=== PATIENT | female | born 1940 | race Caucasian/White ===

== ENCOUNTER → 2017-01-05 | Outpatient (CLI) | payer MEDICARE, OTHER ==
[~2017-01-05] MED LIST: ASPI-983 PO; ATOR80TA76 PO; CLOP75TA28 PO; DICL500C PO; LISI10TA2 PO; TRAM50TA2 PO
[2017-01-05 09:50] LABS: BASOPHILS # (AUTO) 0.1 10^3/uL (0.0-0.1); BASOPHILS % (AUTO) 1 % (0-10); EOSINOPHILS # (AUTO) 0.1 10^3/uL (0.0-0.3); EOSINOPHILS % (AUTO) 1 % (0-10); LYMPHOCYTES # (AUTO) 1.9 X 10^3 (1.0-4.0); LYMPHOCYTES % (AUTO) 22 % (12-44); MEAN CORPUSCULAR HEMOGLOBIN 30 PG (25-34); MEAN CORPUSCULAR HGB CONC 33 G/DL (32-36); MEAN CORPUSCULAR VOLUME 91 FL (80-99); MEAN PLATELET VOLUME 10.1 FL (7.4-10.4); MONOCYTES # (AUTO) 0.8 X 10^3 (0.0-1.0); MONOCYTES % (AUTO) 9 % (0-12); NEUTROPHILS # (AUTO) 5.8 X 10^3 (1.8-7.8); NEUTROPHILS % (AUTO) 68 % (42-75); PLATELET COUNT 226 10^3/uL (130-400); RED BLOOD COUNT 4.68 10^6/uL (4.35-5.85); WHITE BLOOD COUNT 8.6 10^3/uL (4.3-11.0)
[2017-01-05 10:12] LABS: ALANINE AMINOTRANSFERASE 21 U/L (0-55); ANION GAP 11 MMOL/L (5-14); ASPARTATE AMINO TRANSFERASE 24 U/L (5-34); BILIRUBIN,TOTAL 0.7 MG/DL (0.1-1.0); BLOOD UREA NITROGEN 18 MG/DL (7-18); BUN/CREATININE RATIO 24; CALCIUM 9.8 MG/DL (8.5-10.1); CARBON DIOXIDE 26 MMOL/L (21-32); CHLORIDE 104 MMOL/L (98-107); CREATININE SERUM 0.76 MG/DL (0.60-1.30); GFR ESTIMATED > 60; GLUCOSE 79 MG/DL (70-105); POTASSIUM 4.3 MMOL/L (3.6-5.0); SODIUM 141 MMOL/L (135-145); TOTAL PROTEIN 6.8 G/DL (6.4-8.2)
== END ==
LOC: LAB 09:28
PROVIDERS: ATTEND Surgery
DX: I70.232 Atherosclerosis of native arteries of right leg with ulceration of calf (principal); L97.213 Non-pressure chronic ulcer of right calf with necrosis of muscle; I87.331 Chronic venous hypertension (idiopathic) with ulcer and inflammation of right lower extremity; T65.222S Toxic effect of tobacco cigarettes, intentional self-harm, sequela
CPT/HCPCS: 36415; 80053; 85025

== ENCOUNTER → 2017-01-08 | Outpatient (CLI) | payer MEDICARE, OTHER | LOC: RAD 08:32 | PROVIDERS: ATTEND Internal Medicine Interventional Cardiology | DX: Z53.9 Procedure and treatment not carried out, unspecified reason (principal) ==

== ENCOUNTER → 2017-01-08 | Outpatient (CLI) | payer MEDICARE, OTHER ==
[~2017-01-08] MED LIST changes: +CATHETER FLUSH 10 ML SYR IV PRN; +IOHEXOL 350 MG/ML 150 ML (OMNIPAQUE 350) VIAL IV ONE; +NS 100 ML (IVPB) BAG IV ONE
--- NOTE | 2017-01-08 11:27 | Diagnostic Imaging Report ---
PROCEDURE: CT angiography of the chest with contrast. TECHNIQUE: Multiple contiguous axial images were obtained through the chest after uneventful bolus administration of intravenous contrast. Reconstructed CTA MIP acquisitions were also performed. INDICATION: Blood pressure discrepancy. 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 Ectasia of the right subclavian artery is also noted. The mid and distal segments of the right subclavian artery are obscured by the streak artifact from incoming contrast through the right subclavian vein. There is suggestion of kinking in the mid to distal right subclavian artery which narrows the lumen. This may be positional due to arm-up position. If the patient is symptomatic in the right arm then ultrasound evaluation or CT of the neck which is done in a neutral arm position would be helpful. There is mild ectasia of the distal aspect of the left subclavian artery and the axillary artery with no high-grade stenosis. The left common carotid artery is patent. The distal aspect of the aortic arch is aneurysmal measuring 3.3 cm in caliber. The descending aorta is aneurysmal measuring 3.7 cm in caliber. There is diffuse aneurysmal dilatation of the descending aorta and extending to the abdominal aorta which measures 3 cm above the celiac artery and 2.9 cm just above the renal arteries. The infrarenal abdominal aorta is normal in caliber. 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 The ascending aorta is normal in caliber as well as the aortic root. The heart size is normal. No pericardial or pleural effusion. The pulmonary arteries demonstrate no filling defect to suggest pulmonary embolism. The lungs demonstrate advanced emphysema changes. There is no mediastinal mass or significantly enlarged lymph nodes seen. No significantly enlarged hilar or axillary lymph nodes are noted. Calcified granulomas in the lungs and the spleen are noted. The osseous structures demonstrate degenerative changes in the mid to lower thoracic spine. IMPRESSION: 1. 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 In the mid to distal aspect of the right subclavian artery, there is kinking of the vessel narrowing the lumen. This could be positional and if the patient has symptoms in the right upper extremity, then better evaluation with right upper extremity arterial ultrasound or CTA of the neck (which will be in a neutral arm position) would be helpful. 2. 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 Followup studies recommended. Dictated by: Dictated on workstation # [id number]
--- NOTE | 2017-01-08 12:48 | Diagnostic Imaging Report ---
PROCEDURE: US Bilateral lower extremity arterial. TECHNIQUE: Multiple real-time grayscale images are obtained through both lower extremity arterial systems with color Doppler imaging and color Doppler spectral analysis. INDICATION: Limb ischemia. FINDINGS: The right lower extremity arteries demonstrate atherosclerotic plaque on grayscale images. There are triphasic waveforms and normal flow seen in the right EATING DISORDER PSYCHOLOGIST. The profunda femoris has biphasic waveforms. There is slow monophasic flow in the proximal SFA. There is a long segment of occlusion in the mid SFA with reconstitution of flow in the distal SFA which demonstrates an elevated velocity of 272 cm/s. Monophasic waveforms are seen. There is patency with monophasic waveforms and diminished flow velocity of 26 seen in the right popliteal artery. The peroneal trunk is patent with diminished flow. The dorsalis pedis appears occluded. More proximally, the anterior tibial artery has diminished flow. The posterior tibial artery has diminished monophasic waveforms with a velocity of 32 cm/s. LEFT LOWER EXTREMITY: Grayscale images demonstrate atherosclerotic plaque. Biphasic waveforms in the common femoral and proximal and mid superficial femoral arteries are seen with normal velocity ranges. The profunda femoris is patent. There is a short segment complete occlusion in the distal left SFA with reconstitution in the mid to distal popliteal artery that demonstrates diminished flow with monophasic waveforms. The posterior tibial artery proximally is patent and distally appears occluded. The anterior tibial artery appears patent with flow to the dorsalis pedis at 35 cm/s. IMPRESSION: Bilateral SFA occlusions as above. There is also occlusion in the dorsalis pedis on the right and occlusion of the posterior tibial artery on the left. The report was faxed to the office of Dr. Carpenter by [facility] at 12:50 PM. Dictated by: Dictated on workstation # [id number]
== END ==
LOC: RAD 08:22
PROVIDERS: ATTEND Internal Medicine Interventional Cardiology
DX: I70.203 Unspecified atherosclerosis of native arteries of extremities, bilateral legs (principal); I71.9 Aortic aneurysm of unspecified site, without rupture; I99.8 Other disorder of circulatory system; F17.200 Nicotine dependence, unspecified, uncomplicated
CPT/HCPCS: 71275; 93925

== ENCOUNTER 2017-01-11 10:16 | Day surgery (SDC) | payer MEDICARE ==
[~2017-01-11] VITALS: Ht 167.6 cm; Wt 52.2 kg
[2017-01-11] VITALS (8 sets, daily range): BP systolic 110–168; BP diastolic 54–72
[2017-01-11] MEDS ORDERED: NS IV 1000 ML 1,000 ML ONE (10:31)
[2017-01-11] MEDS ORDERED: HEParin (CATH LAB) 2,000 ML IV ONE (10:31)
[2017-01-11] MEDS ORDERED: LIDOCAINE 1% INJ 20 ML (XYLOCAINE) VIAL ONE (10:31)
[2017-01-11] MEDS ORDERED: DICL500C PO (11:23)
[2017-01-11 11:25] LABS: MEAN PLATELET VOLUME 10.4 FL (7.4-10.4); RED BLOOD COUNT 4.52 10^6/uL (4.35-5.85); RED CELL DISTRIBUTION WIDTH 14.9 % (10.0-14.5); WHITE BLOOD COUNT 8.1 10^3/uL (4.3-11.0)
[2017-01-11] MEDS ORDERED: NS IV 1000 ML 1,000 ML IV SCH (11:30)
[2017-01-11] MEDS ORDERED: TRAM50TA2 PO (11:35)
[2017-01-11 11:38] LABS: PROTHROMBIN TIME PATIENT 12.6 SEC (12.2-14.7)
[2017-01-11 11:46] LABS: ALANINE AMINOTRANSFERASE 22 U/L (0-55); ANION GAP 10 MMOL/L (5-14); ASPARTATE AMINO TRANSFERASE 19 U/L (5-34); BILIRUBIN,TOTAL 0.4 MG/DL (0.1-1.0); BLOOD UREA NITROGEN 21 MG/DL (7-18); BUN/CREATININE RATIO 29; CALCIUM 9.7 MG/DL (8.5-10.1); CARBON DIOXIDE 28 MMOL/L (21-32); CHLORIDE 102 MMOL/L (98-107); CHOLESTEROL 181 MG/DL (< 200); CREATININE SERUM 0.72 MG/DL (0.60-1.30); DIRECT LDL 95 MG/DL (1-129); GFR ESTIMATED > 60; GLUCOSE 90 MG/DL (70-105); SODIUM 140 MMOL/L (135-145); TOTAL PROTEIN 6.6 G/DL (6.4-8.2); TRIGLYCERIDES 145 MG/DL (<150); VLDL CHOLESTEROL 29 MG/DL (5-40)
[2017-01-11] MEDS ORDERED: fentaNYL INJECTION 100 MCG/2 ML AMP ONE ×2 (14:27→15:57)
[2017-01-11] MEDS ORDERED: diphenhydrAMINE 50 MG/ML INJ (BENADRYL) ONE (14:27)
[2017-01-11] MEDS ORDERED: MIDAZOLAM 5 MG/5 ML (VERSED) VIAL ONE ×2 (14:27→15:57)
--- NOTE | 2017-01-11 14:40 | Cardiac Procedure Note-CS/ASA ---
Pre-Procedure Note Pre-Op Procedure Note H&P Reviewed The H&P was reviewed, patient examined and no changes noted. Date H&P Reviewed: January 11, 2017 Time H&P Reviewed: 14:40 Conscious Sedation Pre-Proced Time Reviewed: 14:40 ASA Class: 3 Airway Mallampati Classification: (pilot station appropriate class) I. II. III, IV Lungs Heart ASA score ASA 1: a normal healthy patient ASA 2: a patient with a mild systemic disease (mid diabetes, controlled hypertension, obesity ASA 3: a patient with a severe systemic disease that limits activity (angina , COPD, prior Myocardial infarction) ASA 4: a patient with an incapacitating disease that is a constant threat to life (CHF, renal failure) ASA 5: a moribund patient not expected to survive 24 hrs. (ruptured aneurysm) ASA 6: a declared brain patient whose organs are being harvested. For emergent operations, add the letter E after the classification Grade 1 Sedation Plan: Analgesia, Amnesia, Plan communicated to team members, Discussed options with patient/fam, Discussed risks with patient/fam Note The patient is an appropriate candidate to undergo the planned procedure, sedation, and anesthesia. The patient immediately re-assessed prior to indication. Jesus MAJOR MD January 11, 2017 2:40 pm
[2017-01-11] MEDS ORDERED: CLOPIDOGREL 300 MG (PLAVIX) TABLET PO ONE (15:23)
[2017-01-11] MEDS ORDERED: HEParin 1000 UNIT/ML (10ML VIAL) FOR BOLUS ONE (15:23)
--- NOTE | 2017-01-11 17:54 | Cardiology Post Procedure Note ---
Post-Procedure Note Post-Op Procedure Note Procedure Start Date: January 11, 2017 Procedure Start Time: 14:00 Name of Procedure: peripheral angiography, balloon angioplasty to right popliteal artery, stents to right superficial femoral artery, balloon angioplasty to right common femoral artery. Findings/Procedure Note totally occluded right SFA treated with 3 supera stents. Severe right popliteal artery disease treated with 5.0 Lutonix drug coated balloon. Drug coated balloon angioplasty (6.0mm Lutonix) to the ostium of the right SFA and [employer]. Anesthesia Type: Conscious Sedation Estimated blood loss (mL): 30 ml Contrast Amount: 180 Post-Operative Diagnosis Post-operative diagnosis: total occlusion right SFA, severe disease right popliteal artery treated successfully with balloon angioplasty and stent. Jesus MAJOR MD January 11, 2017 5:54 pm
[2017-01-11] MEDS ORDERED: PATIENT MAY USE OWN MEDS, ALL PO SCH (18:00)
[2017-01-11] MEDS: NS IV 1000 ML 1,000 ML IV SCH ×2 (18:00→20:13)
[2017-01-11] MEDS: morphine INJ 4 MG/ML 1 ML (VIAL/SYRINGE) IVP PRN (20:13)
[2017-01-11] MEDS ORDERED: ATROPINE INJ 0.4 MG/ML SDV ONE (20:21)
[2017-01-11] MEDS ORDERED: ATROPINE INJECTION 1 MG/10 ML SYR (ABBOTT) ONE (20:23)
[2017-01-11] MEDS ORDERED: ATORVASTATIN 80 MG (LIPITOR) TABLET PO SCH (21:00)
[2017-01-12] VITALS (13 sets, daily range): BP systolic 94–157; BP diastolic 37–75
[2017-01-12] MEDS: morphine INJ 4 MG/ML 1 ML (VIAL/SYRINGE) IVP PRN ×2 (00:09→08:59)
[2017-01-12 04:35] LABS: MEAN PLATELET VOLUME 10.8 FL (7.4-10.4); RED BLOOD COUNT 4.28 10^6/uL (4.35-5.85); RED CELL DISTRIBUTION WIDTH 14.9 % (10.0-14.5)
[2017-01-12 04:52] LABS: ANION GAP 9 MMOL/L (5-14); BLOOD UREA NITROGEN 16 MG/DL (7-18); BUN/CREATININE RATIO 24; CALCIUM 8.6 MG/DL (8.5-10.1); CARBON DIOXIDE 23 MMOL/L (21-32); CHLORIDE 108 MMOL/L (98-107); CREATININE SERUM 0.66 MG/DL (0.60-1.30); GFR ESTIMATED > 60; GLUCOSE 141 MG/DL (70-105); POTASSIUM 3.8 MMOL/L (3.6-5.0); SODIUM 140 MMOL/L (135-145)
[2017-01-12] MEDS: NS IV 1000 ML 1,000 ML IV SCH (05:42)
[2017-01-12] MEDS ORDERED: NS IV 500 ML 500 ML IV ONE (05:45)
[2017-01-12] MEDS ORDERED: lisINopril 10 MG (PRINIVIL) TAB PO SCH (09:00)
[2017-01-12] MEDS ORDERED: CLOPIDOGREL 75 MG (PLAVIX) TABLET PO SCH (09:00)
[2017-01-12] MEDS ORDERED: ASPIRIN E.C. 81 MG (ECOTRIN) TAB PO SCH (09:00)
[2017-01-12] MEDS ORDERED: morphine INJ 4 MG/ML 1 ML (VIAL/SYRINGE) IVP PRN (10:30)
[2017-01-12] MEDS ORDERED: ASPI-983 PO (11:35)
[2017-01-12] MEDS ORDERED: ATOR80TA76 PO (11:35)
[2017-01-12] MEDS ORDERED: LISI10TA2 PO (11:35)
[2017-01-12] MEDS ORDERED: CLOP75TA28 PO (11:35)
--- NOTE | 2017-01-12 11:36 | Discharge Inst-Post CATH ---
Discharge Inst-CATH Post Cardiac Cath D/C Inst Follow Up/Plan Follow-up with Dr. Carpenter in 2 weeks CARDIAC CATH DISCHARGE INSTRUCTIONS *Hold Metformin for 48 hours post heart cath. ACTIVITY * Go Home directly and rest. * Limit activity of the leg (or wrist if it was used) for 7 days including aerobics, swimming, jogging, bicycling, etc. * Restrict stair-climbing for 7 days if possible, if not, climb up with your non -cath leg, then bring together on the same step. * Avoid lifting, pushing, pulling or excessive movement of the affected extremity for 7 days. * Customary sexual activity may be resumed after 2 days-use caution not to use a position that strains or causes pain to the affected extremity. * No driving for 24 hours. * NO SMOKING. * Avoid straining for bowel movements for 7 days. * Gentle walking on level ground is allowed. * Returning to work will depend on the type of procedure and the results. Your doctor will discuss this with you. CALL YOUR DOCTOR FOR ANY OF THE FOLLOWING: *If bleeding from the puncture site occurs- Apply gentle pressure to site with clean cloth and call your doctor or EMS. * If a knot or lump forms under the skin, increases in size, or causes pain. * If bruising appears to be worsening or moving further down your leg instead of disappearing. * Temperature above 101 F. CARE OF YOUR GROIN INCISION; * Bruising or purple discoloration of the skin near the puncture site is common. * You may shower only, no bathtub bathing for 5 days. Be careful to avoid slipping as your leg may feel stiff. * If a closure device was used on your femoral artery, please see the attached guide regarding care of the device and your leg. * REMOVE the dressing from your groin the next day after your procedure in the shower. CARE OF YOUR WRIST INCISION; * Bruising or purple discoloration of the skin near the puncture site is common. * You may shower. * DO NOT submerge wrist. * Remove dressing in 24 hours. Jesus CARPENTER MD January 12, 2017 11:36
--- NOTE | 2017-01-12 11:39 | Cardiology Discharge Summary ---
Diagnosis/Chief Complaint Date of Admission 01/11/2017 Date of Discharge 01/12/2017 Admission Diagnosis Critical limb ischemia Final/Discharge Diagnosis Critical limb ischemia, status post MARKETING LIAISON/stent to right lower extremity Chief Complaint/HPI Chief Complaint/HPI Critical limb ischemia, severe bilateral lower extremity PAD, nonhealing ulcer right lower extremity. Resting discomfort Discharge Summary Procedures Peripheral angiogram and intervention right HAND STEMMER, SFA, popliteal artery. Discharge Physical Examination Stable cardiovascular exam. Normal left groin with no bruit Palpable right PT. Hospital Course Stable Pending Labs Laboratory Tests 01/12/17 03:50: White Blood Count 10.0, Red Blood Count 4.28, Hemoglobin 12.8, Hematocrit 39, Mean Corpuscular Volume 92, Mean Corpuscular Hemoglobin 30, Mean Corpuscular Hemoglobin Concent 33, Red Cell Distribution Width 14.9, Platelet Count 189, Mean Platelet Volume 10.8, Sodium Level 140, Potassium Level 3.8, Chloride Level 108, Carbon Dioxide Level 23, Anion Gap 9, Blood Urea Nitrogen 16, Creatinine 0.66, Estimat Glomerular Filtration Rate > 60, BUN/Creatinine Ratio 24, Glucose Level 141, Calcium Level 8.6 Discussion & Recommendations Discussion Discharge took over 30 minutes including discussion with the patient, education about medication, answering all the questions, discussion with the nurse. Follow up appt.: Dr. Morejon in 2 weeks, Dr. Carpenter in 2 weeks Dicharge Diet: Cardiac Diet Activity as Tolerated: Yes Home Medications Reviewed patient Home Medication Reconciliation Form Discharge Home Medications: Reviewed and agree with Discharge Medication list on patient's Discharge Instruction sheet Condition at discharge Stable Instructions to patient/family Follow-up with Dr. Carpenter in 2 weeks Jesus CARPENTER MD January 12, 2017 11:39
--- NOTE | 2017-01-14 09:24 | CARDIAC CATHETERIZATION ---
DATE OF SERVICE: 01/11/2017 PERIPHERAL ANGIOGRAM AND ANGIOPLASTY REFERRING PHYSICIAN: Dr. Farhad Morejon. PERFORMING PHYSICIAN: Dr. Robb Carpenter. INDICATION: 1. Critical limb ischemia. 2. Nonhealing ulcer, right lower extremity. PREOPERATIVE DIAGNOSES: 1. Critical limb ischemia. 2. Nonhealing ulcer in the right miner. POSTOPERATIVE DIAGNOSES: 1. Critical limb ischemia. 2. Severe peripheral arterial disease. 3. Status post drug-coated balloon angioplasty to the right common femoral artery and popliteal artery. 4. Successful stent placement in the right SFA. HISTORY: The patient is a 76-year-old lady who has significant history of smoking. She has a large nonhealing ulcer due to a traumatic wound for the last 8 months with no significant improvement. She was referred to us by our wound center for evaluation of peripheral vascular disease. ABIs were performed, which showed significantly abnormal GETACHEW bilaterally, however, right was much worse than the left. Segmental pressures also showed significantly poor waveforms in the right lower extremity. Therefore, urgent peripheral angiography was recommended. The patient was started on aspirin, Plavix and statin. PROCEDURE PERFORMED: 1. Abdominal aortogram. 2. Nonselective renal angiogram. 3. Bilateral lower extremity runoff. 4. Selective angiography of the right common iliac artery, external iliac artery, common femoral artery. 5. Selective angiography of the right SFA. 6. Selective angiography of the right popliteal artery. 7. Drug-coated balloon angioplasty to the right popliteal artery. 8. Stent placement, right superficial femoral artery. 9. Drug-coated balloon angioplasty to right common femoral artery. COMPLICATIONS: None. SPECIMENS: None. ANTICOAGULATION: IV heparin. ESTIMATED BLOOD LOSS: 20 mL. CONTRAST DOSE: 180 mL of Omnipaque. FLUOROSCOPY DOSE: 288 mGy. EQUIPMENT USED: 1. 6 Yakut x 11 sheath. 2. Pigtail catheter. 3. 0.035 Storq 300 cm wire. 4. 0.035 standard straight Glidewire 260 cm. 5. 6 Y[place]ut x 45 cm flexor sheath. 6. 100 cm straight tapered Glidecath. 7. Gem support catheter 0.035 x 150 cm. 8. [place] 18 5 x 200 x 150 balloon. 9. Bard Lutonix 5 x 150 x 130 drug-coated balloon. 10. Bard Lutonix 6 x 80 x 130 drug-coated balloon. 11. Méndez Supera 5.5 mm x 150 mm x 120 cm stent. 12. Supera 5.5 mm x 150 mm x 120 cm Supera stent. 13. 5.0 x 120 mm Supera stent. PROCEDURE DETAILS: The patient was brought to the [facility] after informed consent was taken. All the risks and complications were explained in detail. The patient was draped and prepped in the usual sterile fashion. Access was gained in the left femoral artery with a 6-Yakut sheath. We advanced a pigtail catheter on top of regular guidewire into the mid abdominal aorta. Abdominal aortogram and nonselective renal angiogram was performed. The pigtail catheter was then pulled at the level of just above the bifurcation of the iliac vessels. We then performed bilateral lower extremity runoff. AORTOGRAM: Abdominal aortogram showed mild diffuse disease in the abdominal aorta. There was also moderate disease in the proximal right common iliac artery. Left renal artery dose not have any significant stenosis. Right renal artery has mild stenosis at the ostium. RIGHT LOWER EXTREMITY: As mentioned earlier, the pigtail catheter then was pulled back to be just above the bifurcation of the iliac artery. Bilateral lower extremity runoff was performed. It showed moderate disease in the ostium and proximal segment of the right common iliac artery. There was no significant disease in the right external iliac artery. There is mild disease in the right common femoral artery. There is a total long occlusion of the right SFA, right from its origin. It reconstitutes in the distal aspect for 2-3 cm and then there is another long occlusion, which reconstitutes in the distal popliteal artery. The distal segment is supplied by good collaterals from the deep femoral artery. The right popliteal artery also has significant severe stenosis. Below the knee, there is at least 2-vessel runoff. There is a reasonable sized right posterior tibial artery, which supplies the majority of the foot. There is also a patent deep peroneal artery, which has mild diffuse disease and supplies almost until the foot. The anterior tibial artery is significantly diseased and totally occluded in the midcalf region and no significant reconstitution is noted. LEFT LOWER EXTREMITY: No significant disease in the left common, external iliac artery. There is [id number] disease in the distal left external iliac artery as well as the common femoral artery. There is at least moderate disease at the bifurcation of the common femoral artery into the deep femoral and superficial femoral artery. The superficial femoral artery has [id number] diffuse disease, but then occludes just before it enters into the Solo canal. There, popliteal artery is occluded and reconstitution is noted in the distal aspect of the left popliteal artery below the knee supplied by collaterals from above the knee. There is a patent but diffusely diseased anterior tibial artery which supplies the foot. There is no significant severe stenosis noted, however, there is diffuse disease. The left posterior tibial as well as deep peroneal artery are not well visualized and maybe severely diseased or even occlusive. RECOMMENDATIONS: Distal aspect of the right UNLOADING CHECKER, the entire aspect of the SFA and popliteal artery intervention is recommended. INTERVENTION DETAILS: We used the pigtail catheter as a crossover catheter and used a Storq wire to perform the crossover of the pigtail as well as the Storq wire into the right lower extremity. The Storq wire was parked in the proximal SFA and the pigtail catheter was removed and the sheath was exchanged to a long 6-Yakut x 45 cm flexor sheath. The tip of the sheath was advanced into the proximal aspect of the right UNLOADING CHECKER. The wire was taken out and selective angiogram in ipsilateral and contralateral views were performed to see exactly where the occlusion of the right SFA starts. There was a small nub noted just at the distal aspect of the UNLOADING CHECKER. There is a large profunda which actually supplies the majority of the collaterals. We then took a straight tapered [place] catheter and used a Glidewire to advance into the occlusive segment of the SFA. We advanced a few cm in and felt some resistance; therefore, we took the wire out and took a selective angiogram, which showed that we were still in the arterial space. We then took wire again and then this time took the [place] catheter out as well and took a Gem support catheter by vascular Screenie and with difficulty, we were able to traverse the entire long occlusive segment of the right SFA and got to the distal popliteal artery. The wire was taken out and we injected through the Gem support catheter and took a selective angiogram, which demonstrated that we were intraluminal in the distal aspect of the popliteal artery. We then took a Command 0.018 wire and placed it into the deep peroneal artery and took out the Gem support catheter. We then took an [place] 18 5 x 200 x 150 balloon and advanced it until the distal aspect of the right popliteal artery. First inflation was performed for 5 atmospheres for 153 seconds. We then pulled the balloon back in the mid aspect of the SFA and performed another inflation for 5 atmospheres for 120 seconds. We then pulled the balloon further out and performed a balloon inflation at the proximal SFA and the distal UNLOADING CHECKER for 5 atmospheres for 62 seconds. Post balloon angioplasty, angiogram was performed, which showed recanalization with still some residual stenosis and small areas of nonflow limiting dissection noted. We then took a Lutonix 5 x 150 x 130 drug-coated balloon and did a balloon angioplasty in the right popliteal artery at nominal pressures for 120 minutes. We then took the same drug-coated balloon back and performed a balloon angioplasty at 10 atmospheres and then 16 atmospheres twice in the mid and proximal aspect of the SFA and distal UNLOADING CHECKER. Post balloon angioplasty showed a reasonable angiographic result. We then took a Supera stent and implanted it, Supera 5.0 x 120 cm stent from the mid aspect of the popliteal artery until the distal aspect of the SFA. We then took another Supera 5.5 mm x 150 x 120 cm stent and did an overlap at the previous stent and placed it in the mid aspect of the SFA. We then took another Supera stent, a 5.5 mm x 150 mm x 120 cm and did an overlap at mid stent and placed it in the proximal aspect of the right SFA. We then took the stent deployment device out of the arterial space and did an angiogram, which showed excellent recanalization with brisk flow down to below the knee. The proximal aspect of the large stent was just below the origin of the right SFA. This was part of the occlusive segment; therefore, we decided to take another Lutonix 6 x 80 x 130 stent and did a balloon dilatation for 12 atmospheres for 120 seconds in the distal UNLOADING CHECKER and ostial right SFA. Post balloon angioplasty, angiogram showed excellent results with good flow down to the foot via 2 vessels below the knee. The residual disease that was left in the distal popliteal and anterior tibial artery, which will be addressed at a later date if required. We then pulled the sheath back to the right common iliac artery and did a selective angiogram to show good results and no vascular complication in the right common, external iliac, UNLOADING CHECKER. We then did pressure measurement across the moderate diseased segment in the right common iliac artery and the pressure gradient of less than 5 mmHg. We then selective angiogram at the end of the bifurcation to make sure there was no damage done to the bifurcation of the iliac artery. We then took the long sheath out and replaced it with a short 6-Yakut sheath. Review of the left common femoral artery showed at least moderate disease, therefore, no vascular closure device was placed and it will be closed with manual compression. Also to note that the patient was given IV heparin for anticoagulation and ACT was over 200 seconds. The patient tolerated the procedure well, did not have any complications. IMPRESSION AND CONCLUSION: 1. Severe bilateral peripheral arterial disease. 2. Long segment of occlusive disease in the right superficial femoral artery and severe disease in the right popliteal artery, successfully treated with drug-coated balloons and stents. 3. Aspirin, Plavix, statins will be started. 4. Smoking cessation strongly recommended. 5. The left lower extremity as well as the right below the knee disease will be addressed at a later date if required. Job ID: [id number] DocumentID: [id number] Dictated Date: 01/12/2017 22:04:15 Oil Dipper Date: 01/14/2017 05:46:02 Dictated By: ROBB CARPENTER MD
== END 2017-01-12 14:10 ==
LOC: CATH 10:16 → ICU 18:00 → CATH 01-12 14:10
PROVIDERS: ATTEND Internal Medicine Cardiovascular Disease
DX: L97.819 Non-pressure chronic ulcer of other part of right lower leg with unspecified severity (principal); I70.213 Atherosclerosis of native arteries of extremities with intermittent claudication, bilateral legs; I70.92 Chronic total occlusion of artery of the extremities; Z79.899 Other long term (current) drug therapy; Z87.891 Personal history of nicotine dependence
CPT/HCPCS: 36247; 36415; 37226; 75625; 75716; 75774; 80048; 80053; 80061; 85027; 85347; 85610; 85730; 87081

== ENCOUNTER → 2017-02-23 | Outpatient (CLI) | payer MEDICARE ==
[~2017-02-23] MED LIST changes: -CATHETER FLUSH 10 ML SYR IV PRN; -IOHEXOL 350 MG/ML 150 ML (OMNIPAQUE 350) VIAL IV ONE; -NS 100 ML (IVPB) BAG IV ONE
--- NOTE | 2017-02-23 15:14 | Diagnostic Imaging Report ---
INDICATION: Peripheral vascular disease and smoking, history of stents in right leg. TECHNIQUE: Noninvasive study performed. FINDINGS: There is significant degradation of waveforms in the right lower leg compatible with stenosis. Ankle-brachial indices are significantly diminished on the right side especially distally, with index of 0.34. Posterior tibial and dorsalis pedis are not obtainable on the left side. IMPRESSION: Evidence of significant peripheral vascular disease as above. Dictated by: Dictated on workstation # [id number]
== END ==
LOC: RAD 12:02
PROVIDERS: ATTEND Internal Medicine Interventional Cardiology
DX: I73.9 Peripheral vascular disease, unspecified (principal); F17.200 Nicotine dependence, unspecified, uncomplicated; Z95.828 Presence of other vascular implants and grafts
CPT/HCPCS: 93923

== ENCOUNTER 2017-03-23 10:48 | Outpatient (RCR) | payer MEDICARE, OTHER | END 2017-03-29 | disposition home or self-care (01) | LOC: WOUNDCARE 10:48 | PROVIDERS: ATTEND Surgery | DX: L97.213 Non-pressure chronic ulcer of right calf with necrosis of muscle (principal); I70.232 Atherosclerosis of native arteries of right leg with ulceration of calf; I87.331 Chronic venous hypertension (idiopathic) with ulcer and inflammation of right lower extremity; T65.222S Toxic effect of tobacco cigarettes, intentional self-harm, sequela | CPT/HCPCS: 11042; 11043; 87070; 87075; 87077; 87186; 87205; 99213 ==

== ENCOUNTER 2017-03-30 10:23 | Outpatient (RCR) | payer MEDICARE, OTHER | END 2017-04-02 16:00 | disposition home or self-care (01) | LOC: WOUNDCARE 10:23 | PROVIDERS: ATTEND Surgery | DX: L97.213 Non-pressure chronic ulcer of right calf with necrosis of muscle (principal); I70.232 Atherosclerosis of native arteries of right leg with ulceration of calf; I87.331 Chronic venous hypertension (idiopathic) with ulcer and inflammation of right lower extremity; T65.222S Toxic effect of tobacco cigarettes, intentional self-harm, sequela | CPT/HCPCS: 11042 ==

== ENCOUNTER 2017-04-06 12:00 | Outpatient (RCR) | payer MEDICARE, OTHER ==
[2017-03-30 10:50] LABS: ANION GAP 7 MMOL/L (5-14); BLOOD UREA NITROGEN 12 MG/DL (7-18); BUN/CREATININE RATIO 17; CALCIUM 9.5 MG/DL (8.5-10.1); CARBON DIOXIDE 29 MMOL/L (21-32); CHLORIDE 102 MMOL/L (98-107); CREATININE SERUM 0.71 MG/DL (0.60-1.30); GFR ESTIMATED > 60; GLUCOSE 99 MG/DL (70-105); SODIUM 138 MMOL/L (135-145)
[2017-04-06 12:38] LABS: ANION GAP 14 MMOL/L (5-14); BLOOD UREA NITROGEN 17 MG/DL (7-18); BUN/CREATININE RATIO 23; CALCIUM 9.7 MG/DL (8.5-10.1); CARBON DIOXIDE 23 MMOL/L (21-32); CHLORIDE 102 MMOL/L (98-107); CREATININE SERUM 0.73 MG/DL (0.60-1.30); GFR ESTIMATED > 60; GLUCOSE 76 MG/DL (70-105); POTASSIUM 3.9 MMOL/L (3.6-5.0); SODIUM 139 MMOL/L (135-145)
[2017-05-03] MEDS ORDERED: SERRAPEPTASE PO (08:58)
[2017-05-03] MEDS ORDERED: NATTOKINASE PO (08:58)
[2017-05-03] MEDS ORDERED: TURMERIC PO (08:58)
[2017-05-03] MEDS ORDERED: HYDR-3812 PO (09:09)
[2017-05-03] MEDS ORDERED: ASPI-983 PO (14:09)
[2017-05-03] MEDS ORDERED: CLOP75TA28 PO (14:09)
[2017-05-03] MEDS ORDERED: ATOR40TA PO (14:12)
== END 2017-06-02 | disposition home or self-care (01) ==
LOC: LAB 12:00
PROVIDERS: ATTEND Surgery
DX: L97.213 Non-pressure chronic ulcer of right calf with necrosis of muscle (principal); I70.232 Atherosclerosis of native arteries of right leg with ulceration of calf; I87.331 Chronic venous hypertension (idiopathic) with ulcer and inflammation of right lower extremity
CPT/HCPCS: 36415; 80048

== ENCOUNTER → 2017-04-06 | Outpatient (CLI) | payer MEDICARE | LOC: WOUNDCARE 10:33 | PROVIDERS: ATTEND Surgery | DX: L97.213 Non-pressure chronic ulcer of right calf with necrosis of muscle (principal); I70.232 Atherosclerosis of native arteries of right leg with ulceration of calf; I87.331 Chronic venous hypertension (idiopathic) with ulcer and inflammation of right lower extremity | CPT/HCPCS: 11042 ==

== ENCOUNTER → 2017-04-13 | Outpatient (CLI) | payer MEDICARE | LOC: WOUNDCARE 10:33 | PROVIDERS: ATTEND Surgery | DX: L97.213 Non-pressure chronic ulcer of right calf with necrosis of muscle (principal); I70.232 Atherosclerosis of native arteries of right leg with ulceration of calf; I87.331 Chronic venous hypertension (idiopathic) with ulcer and inflammation of right lower extremity | CPT/HCPCS: 11042 ==

== ENCOUNTER → 2017-04-27 | Outpatient (CLI) | payer MEDICARE | LOC: WOUNDCARE 10:39 | PROVIDERS: ATTEND Surgery | DX: I70.232 Atherosclerosis of native arteries of right leg with ulceration of calf (principal); L97.213 Non-pressure chronic ulcer of right calf with necrosis of muscle; I87.331 Chronic venous hypertension (idiopathic) with ulcer and inflammation of right lower extremity | CPT/HCPCS: 11042 ==

== ENCOUNTER → 2017-04-27 | Outpatient (CLI) | payer MEDICARE, OTHER ==
[~2017-04-27] MED LIST changes: +ATOR40TA PO; +HYDR-3812 PO; +NATTOKINASE PO; +SERRAPEPTASE PO; +TURMERIC PO
--- NOTE | 2017-04-27 17:52 | Diagnostic Imaging Report ---
PROCEDURE: US Bilateral lower extremity arterial. TECHNIQUE: Multiple real-time grayscale images are obtained through both lower extremity arterial systems with color Doppler imaging and color Doppler spectral analysis. INDICATION: Leg pain. FINDINGS: There are no previous arterial Doppler examinations available for comparison. The noninvasive ultrasound exam of the lower extremities performed on 02/23/2017 did indicate severe peripheral vascular disease. On this study, there is triphasic flow in the left common femoral artery. The waveform changes to biphasic in the proximal superficial femoral artery and to monophasic in the mid superficial femoral artery. The waveform remains monophasic to the ankles. There is no abrupt alteration involving the superficial femoral or popliteal arteries to suggest a hemodynamically significant stenosis, but there does seem to be severely diminished arterial flow in the trifurcation arteries. 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 By history, the patient has a stent in the superficial femoral artery on the right. The stent appears to be occluded. There is a small amount of arterial flow in the popliteal artery on the right, but there does seem to be diminished arterial blood flow to the lower leg, and the dorsalis pedis artery is occluded. IMPRESSION: 1. There is severely diminished arterial blood flow to both lower extremities. On the left, this appears to be related to trifurcation disease. On the right, the stent involving the superficial femoral artery is occluded. There is also most likely an element of trifurcation disease on the right as well. 2. If further imaging is desired, CTA of the aorta and bilateral lower extremities would be recommended. Dictated by: Dictated on workstation # [id number]
== END ==
LOC: RAD 11:34
PROVIDERS: ATTEND Internal Medicine Interventional Cardiology
DX: I77.1 Stricture of artery (principal); I70.213 Atherosclerosis of native arteries of extremities with intermittent claudication, bilateral legs; I99.8 Other disorder of circulatory system
CPT/HCPCS: 93925

== ENCOUNTER 2017-05-03 07:21 | Day surgery (SDC) | payer MEDICARE, OTHER ==
[2017-05-03] VITALS (12 sets, daily range): BP systolic 95–162; BP diastolic 45–87
[~2017-05-03] VITALS: Ht 167.6 cm; Wt 52.2 kg
[~2017-05-03 07:21] MED LIST changes: -ATOR40TA PO; -HYDR-3812 PO; -NATTOKINASE PO; -SERRAPEPTASE PO; -TURMERIC PO
[2017-05-03] MEDS ORDERED: NS IV 1000 ML 1,000 ML ONE (07:31)
[2017-05-03] MEDS ORDERED: HEParin (CATH LAB) 2,000 ML IV ONE (07:32)
[2017-05-03] MEDS ORDERED: NS IV 1000 ML 1,000 ML IV SCH (08:00)
[2017-05-03 08:23] LABS: MEAN PLATELET VOLUME 10.4 FL (7.4-10.4); RED BLOOD COUNT 4.94 10^6/uL (4.35-5.85); RED CELL DISTRIBUTION WIDTH 15.6 % (10.0-14.5); WHITE BLOOD COUNT 7.1 10^3/uL (4.3-11.0)
[2017-05-03 08:34] LABS: INR 0.9 (0.8-1.4); PROTHROMBIN TIME PATIENT 12.1 SEC (12.2-14.7)
[2017-05-03 08:42] LABS: ALANINE AMINOTRANSFERASE 21 U/L (0-55); ALBUMIN 4.2 GM/DL (3.2-4.5); ANION GAP 10 MMOL/L (5-14); ASPARTATE AMINO TRANSFERASE 23 U/L (5-34); BILIRUBIN,TOTAL 0.7 MG/DL (0.1-1.0); BLOOD UREA NITROGEN 14 MG/DL (7-18); BUN/CREATININE RATIO 18; CALCIUM 10.1 MG/DL (8.5-10.1); CARBON DIOXIDE 28 MMOL/L (21-32); CHLORIDE 104 MMOL/L (98-107); CREATININE SERUM 0.77 MG/DL (0.60-1.30); GFR ESTIMATED > 60; GLUCOSE 91 MG/DL (70-105); POTASSIUM 3.8 MMOL/L (3.6-5.0); SODIUM 142 MMOL/L (135-145); TOTAL PROTEIN 7.1 GM/DL (6.4-8.2)
[2017-05-03] MEDS ORDERED: TURMERIC PO (08:58)
[2017-05-03] MEDS ORDERED: SERRAPEPTASE PO (08:58)
[2017-05-03] MEDS ORDERED: NATTOKINASE PO (08:58)
[2017-05-03] MEDS ORDERED: fentaNYL INJECTION 100 MCG/2 ML AMP ONE ×2 (09:02→11:00)
[2017-05-03] MEDS ORDERED: ASPIRIN 81 MG CHEW (CHILDREN'S ASA) ONE (09:02)
[2017-05-03] MEDS ORDERED: NITROGLYCERIN DRIP 25 MG/D5W 0 ML IV ONE (09:02)
[2017-05-03] MEDS ORDERED: HEParin 1000 UNIT/ML (10ML VIAL) FOR BOLUS ONE (09:02)
[2017-05-03] MEDS ORDERED: CLOPIDOGREL 300 MG (PLAVIX) TABLET PO ONE (09:02)
[2017-05-03] MEDS ORDERED: MIDAZOLAM 5 MG/5 ML (VERSED) VIAL ONE (09:02)
[2017-05-03] MEDS ORDERED: HYDR-3812 PO (09:09)
[2017-05-03] MEDS ORDERED: diphenhydrAMINE 50 MG/ML INJ (BENADRYL) ONE (09:57)
--- NOTE | 2017-05-03 12:17 | Cardiac Procedure Note-CS/ASA ---
Pre-Procedure Note Pre-Op Procedure Note H&P Reviewed The H&P was reviewed, patient examined and no changes noted. Date H&P Reviewed: May 03, 2017 Time H&P Reviewed: 09:00 Conscious Sedation Pre-Proced Time Reviewed: 09:00 ASA Class: 3 Airway Mallampati Classification: ([place] appropriate class) I. II. III, IV Lungs Heart ASA score ASA 1: a normal healthy patient ASA 2: a patient with a mild systemic disease (mid diabetes, controlled hypertension, obesity ASA 3: a patient with a severe systemic disease that limits activity (angina , COPD, prior Myocardial infarction) ASA 4: a patient with an incapacitating disease that is a constant threat to life (CHF, renal failure) ASA 5: a moribund patient not expected to survive 24 hrs. (ruptured aneurysm) ASA 6: a declared brain patient whose organs are being harvested. For emergent operations, add the letter E after the classification Grade 1 Sedation Plan: Analgesia, Amnesia, Plan communicated to team members, Discussed options with patient/fam, Discussed risks with patient/fam Note The patient is an appropriate candidate to undergo the planned procedure, sedation, and anesthesia. The patient immediately re-assessed prior to indication. Jesus MAJOR MD May 03, 2017 12:17 pm
--- NOTE | 2017-05-03 12:23 | Cardiology Post Procedure Note ---
Post-Procedure Note Physician (s)/Hand Trucker (s) Physician Jesus MAJOR MD Pre-Procedure Diagnosis Pre-Procedure Diagnosis: Critical limb ischemia - right lower extremity Post-Procedure Note Procedure Start Date: May 03, 2017 Procedure Start Time: 10:00 Name of Procedure: Distal Abdominal Aortogram, Bilateral lower extremity run off Selective right lower extremity angiogram SOCIAL SCIENCES LECTURER to right TP trunk, popliteal, SFA and HOOP PUNCH OPERATOR HELPER Drug eluting balloon angioplasty to Right HOOP PUNCH OPERATOR HELPER/SFA Findings/Procedure Note Occluded right HOOP PUNCH OPERATOR HELPER, SFA, Popliteal - revascularized with SOCIAL SCIENCES LECTURER. Brisk flow to below the knee at the end of the procedure. Contrast: 143 ml Flouro time: 17.7 minutes Flouro dose: 237 mgy Anesthesia Type: Conscious Sedation Estimated blood loss (mL): 20 Contrast Amount: 143 Post-Procedure Diagnosis Post-operative diagnosis: Successful Right Lower extremity revascularization with balloon angioplasty Jesus MAJOR MD May 03, 2017 12:23 pm
[2017-05-03] MEDS ORDERED: PATIENT MAY USE OWN MEDS, ALL PO SCH (12:30)
[2017-05-03] MEDS: HYDROcodone/APAP 5 MG/325 MG (LORTAB) TAB PO PRN ×2 (13:49→23:12)
--- NOTE | 2017-05-03 14:08 | Cardiology Discharge Summary ---
Diagnosis/Chief Complaint Date of Admission 05/03/2017 Date of Discharge 05/04/2017 Admission Diagnosis Critical limb ischemia Final/Discharge Diagnosis Critical limb ischemia right lower extremity, status post balloon angioplasty Chief Complaint/HPI Chief Complaint/HPI Nonhealing ulcer, right lower extremity. Resting leg discomfort. Discharge Summary Procedures Peripheral angiography and intervention. Angiography revealed a long total occlusion of the right ENAMEL DIPPER, SFA, popliteal artery. Successful recanalization and revascularization with balloon angioplasty. Discharge Physical Examination Stable Hospital Course Stable Pending Labs Laboratory Tests 05/03/17 08:13: White Blood Count 7.1, Red Blood Count 4.94, Hemoglobin 14.4, Hematocrit 44, Mean Corpuscular Volume 90, Mean Corpuscular Hemoglobin 29, Mean Corpuscular Hemoglobin Concent 33, Red Cell Distribution Width 15.6, Platelet Count 201, Mean Platelet Volume 10.4, Prothrombin Time 12.1, INR Comment 0.9, Activated Partial Thromboplast Time 30, Sodium Level 142, Potassium Level 3.8, Chloride Level 104, Carbon Dioxide Level 28, Anion Gap 10, Blood Urea Nitrogen 14, Creatinine 0.77, Estimat Glomerular Filtration Rate > 60, BUN/Creatinine Ratio 18, Glucose Level 91, Calcium Level 10.1, Total Bilirubin 0.7, Aspartate Amino Transf (AST/SGOT) 23, Alanine Aminotransferase (ALT/SGPT) 21, Alkaline Phosphatase 80, Total Protein 7.1, Albumin 4.2 Discussion & Recommendations Discussion The patient will be discharged on aspirin, Plavix, statin. Follow up appt.: With Dr. Morejon in the wound clinic. Follow-up in my office in 3 weeks. Dicharge Diet: Cardiac Diet Activity as Tolerated: Yes Home Medications Reviewed patient Home Medication Reconciliation Form Discharge Home Medications: Reviewed and agree with Discharge Medication list on patient's Discharge Instruction sheet Condition at discharge Stable Instructions to patient/family Follow-up with Dr. Morejon in the wound clinic. Jesus MAJOR MD May 03, 2017 2:08 pm
[2017-05-03] MEDS ORDERED: CLOP75TA28 PO (14:09)
[2017-05-03] MEDS ORDERED: ASPI-983 PO (14:09)
--- NOTE | 2017-05-03 14:10 | Discharge Inst-Post CATH ---
Discharge Inst-CATH Post Cardiac Cath D/C Inst Follow Up/Plan Follow-up with Dr. Morejon in the wound clinic. In cardiology clinic in 3-4 weeks. CARDIAC CATH DISCHARGE INSTRUCTIONS *Hold Metformin for 48 hours post heart cath. ACTIVITY * Go Home directly and rest. * Limit activity of the leg (or wrist if it was used) for 7 days including aerobics, swimming, jogging, bicycling, etc. * Restrict stair-climbing for 7 days if possible, if not, climb up with your non -cath leg, then bring together on the same step. * Avoid lifting, pushing, pulling or excessive movement of the affected extremity for 7 days. * Customary sexual activity may be resumed after 2 days-use caution not to use a position that strains or causes pain to the affected extremity. * No driving for 24 hours. * NO SMOKING. * Avoid straining for bowel movements for 7 days. * Gentle walking on level ground is allowed. * Returning to work will depend on the type of procedure and the results. Your doctor will discuss this with you. CALL YOUR DOCTOR FOR ANY OF THE FOLLOWING: *If bleeding from the puncture site occurs- Apply gentle pressure to site with clean cloth and call your doctor or EMS. * If a knot or lump forms under the skin, increases in size, or causes pain. * If bruising appears to be worsening or moving further down your leg instead of disappearing. * Temperature above 101 F. CARE OF YOUR GROIN INCISION; * Bruising or purple discoloration of the skin near the puncture site is common. * You may shower only, no bathtub bathing for 5 days. Be careful to avoid slipping as your leg may feel stiff. * If a closure device was used on your femoral artery, please see the attached guide regarding care of the device and your leg. * REMOVE the dressing from your groin the next day after your procedure in the shower. CARE OF YOUR WRIST INCISION; * Bruising or purple discoloration of the skin near the puncture site is common. * You may shower. * DO NOT submerge wrist. * Remove dressing in 24 hours. Jesus MAJOR MD May 03, 2017 2:10 pm
[2017-05-03] MEDS ORDERED: ATOR40TA PO (14:12)
[2017-05-03] MEDS: NS IV 1000 ML 1,000 ML IV SCH ×2 (16:50→22:02)
[2017-05-03] MEDS ORDERED: ATORVASTATIN 80 MG (LIPITOR) TABLET PO SCH (21:00)
[2017-05-04 00:02] VITALS: BP 122/52
[2017-05-04] MEDS: HYDROcodone/APAP 5 MG/325 MG (LORTAB) TAB PO PRN (02:34)
[2017-05-04 04:10] VITALS: BP 106/55
--- NOTE | 2017-05-04 04:13 | OPERATIVE REPORT ---
DATE OF SERVICE: 05/03/2017 PROCEDURE: Peripheral angiogram and intervention. REFERRING PHYSICIAN: Dr. Farhad Morejon. PERFORMING PHYSICIAN: Dr. Anjelica Carpenter. INDICATION: 1. Critical limb ischemia, right lower extremity. 2. Non-healing ulcer, right lower extremity. PREOPERATIVE DIAGNOSES: 1. Critical limb ischemia, right lower extremity. 2. Non-healing ulcer on the right miner. POSTOPERATIVE DIAGNOSES: 1. Critical limb ischemia. 2. Severe bilateral peripheral arterial disease. 3. Totally occluded right common femoral artery, superficial femoral artery, popliteal with reconstitution in the right tibioperoneal trunk treated successfully with balloon angioplasty and drug coated balloon angioplasty to the right superficial femoral artery. HISTORY: The patient is a 77-year-old lady who previous had significant history of smoking. 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 Arterial evaluation showed severely abnormal GETACHEW and ultrasound. She had previous peripheral angiogram and angioplasty on 01/11/2017 and was found to have occluded right SFA which was recanalized with stents and balloon. However, the patient did not take aspirin and Plavix postprocedure and presented after few months with very slowly healing ulcer and some resting discomfort in the right lower extremity. ABIs were performed which showed severe abnormality. Arterial ultrasound also showed occlusion of the stent; therefore peripheral angiogram was recommended after we had a long discussion about compliance with medication especially aspirin and Plavix. PROCEDURE PERFORMED: 1. Distal abdominal aortogram. 2. Bilateral lower extremity runoff. 3. Selective angiogram of the right CRYSTALIZER, SFA, popliteal, below the knee. 4. Selective angiogram of the right SFA. 5. Selective angiogram of the right tibioperoneal trunk and the proximal section of the posterior tibial and anterior tibial artery. 6. Balloon angioplasty to the right tibioperoneal trunk, right popliteal artery, right SFA, right CRYSTALIZER. 7. Drug coated balloon angioplasty to the right common femoral artery. COMPLICATIONS: None. SPECIMENS REMOVED: None. ANTICOAGULATION: Intravenous heparin. ESTIMATED BLOOD LOSS: 20 mL. CONTRAST: 143 mL of Omnipaque. FLUOROSCOPY TIMNE: 17.7 minutes. FLUOROSCOPY DOSE: 237 mGy. EQUIPMENT USED: 1. 6 Citizen [place] x 11 sheath. 2. Pigtail catheter. 3. 0.035 Storq wire 300 cm wire. 4. 0.035 standard straight Glidewire. 5. 6 Citizen [place] x 45 cm flexor sheath. 6. 100 cm straight tipped glide catheter. 7. Garfield 18 4 x 200 x 150 balloon. 8. Garfield 35 6 x 250 x 150 balloon. 9. Lutonix drug coated balloon. PROCEDURE DETAILS: The patient was brought to the catheter laboratory after informed consent was taken. All the risks and complications were explained in detail. The patient was draped and prepped in the usual sterile fashion. Access was gained in the left femoral artery with a 6-Citizen [place] sheath. We advanced a pigtail catheter on top of regular guidewire into the mid abdominal aorta. Abdominal aortogram and bilateral lower extremity runoff was performed. Abdominal aortogram showed mild distal disease. LEFT LOWER EXTREMITY: Mild diffuse common iliac and external iliac disease. Mild to moderate disease of the ostium of the profunda artery. There is mild diffuse disease in the left SFA and then there is total occlusion of the distal left SFA with faint reconstitution in the distal popliteal artery. There are numerous collaterals which are supplying below the knee. The posterior tibial is very likely occluded and not well visualized. The deep peroneal artery is also diffusely diseased and probably occluded. The anterior tibial artery is patent and supplies the foot. RIGHT LOWER EXTREMITY: There is moderate disease in the right common iliac artery probably 30 to 40% stenosis. There is no significant disease in the external iliac artery. There is occluded right CRYSTALIZER just at the origin of the profunda femoris and then the stent is totally occluded with reconstitution noted in the tibioperoneal trunk. There is moderate disease in the tibioperoneal trunk. The tibioperoneal trunk gives an anterior tibial artery which is a small vessel and then diffused diseased and totally occluded in the mid segment. The tibioperoneal trunk then divides into good sized posterior tibial artery which supplies the foot. The deep perioneal artery is also patent; however, gets occluded in the distal calf area. There are excellent collaterals from the profunda femoris artery and the reconstitution is likely secondary to the collaterals. RECOMMENDATIONS: Intervention is recommended to the right CRYSTALIZER, SFA, popliteal artery, TP trunk. DETAILS OF VASCULAR INTERVENTION: We used pigtail catheter to take the distal abdominal aortogram. We then took a Storq wire and placed it into the right CRYSTALIZER. We then took the pigtail catheter out and also took the short sheath out and put the long 6 x 45 cm sheath. The tip of the sheath was placed in the mid CRYSTALIZER. We then took selective angiogram of the right lower extremity which showed total occlusion of the distal CRYSTALIZER, SFA and reconstitution in the tibioperoneal trunk. Excellent collaterals was also noticed. We then took a straight Glidewire as well as 65 cm straight tapered glide catheter and were able to cross the occlusion to the entire stent segment and then were able to get into the distal vessel at the level of the tibioperoneal trunk. The glide catheter was advanced on top of the wire and placed in the tibioperoneal trunk. Then, we took the wire out did selective angiogram through the glide catheter which showed that we were intraluminal distally in the tibioperoneal trunk with an excellent posterior tibial artery as well as deep peroneal artery which supplies the entire calf almost till the foot. However, moderate disease was noted in the tibioperoneal trunk. We placed the Glidewire in the deep peroneal artery and then took Garfield 18 4 x 200 x 150 balloon and did balloon inflations from the deep tibioperoneal trunk at low pressure which was 3 atmospheres for 1.5 minute. We then pulled the balloon back into the stent and did higher pressure balloon at 12 atmospheres for 2 minutes and total 3 inflations were performed at 2 minutes each at 12 to 14 atmospheres in the entire length of the stent as well as in the proximal SFA as well as the distal CRYSTALIZER. We then took the balloon out and took an angiogram which did showed residual disease in the ostium of the SFA; however, recannulization was noted in the stent and distally. We therefore took an Garfield 35 6 x 250 x 150 balloon and did gentle balloon inflation in the tibioperoneal trunk followed by aggressive balloon inflation within the stent area as well as the ostium SFA and CRYSTALIZER at 10 to 12 atmospheres for 2 minutes each. Good recannulization and brisk flow was noted to the lower extremity. At this point in time; however, still there was some residual disease noted in the ostium of the SFA and CRYSTALIZER, therefore we took a drug coated balloon Lutonix 6 x 100 x 130 and did 3 minutes inflation with 12 to 14 atmospheres in the CRYSTALIZER, SFA in the stent. Afterwards, we did lower extremity runoff through the sheath which showed no significant disease in the CRYSTALIZER with brisk flow into the lower extremity. Mild residual stenosis is noted in the distal popliteal artery as well as tibioperoneal trunk. Excellent supply through the posterior tibial artery to the foot. The deep peroneal artery has mild diffuse disease; however, still supplies till the lower calf area. The anterior tibial artery is totally occluded at multiple segments. We then took the sheath back to the level of the iliac artery and did selective angiogram which showed no significant complication at the level of the bifurcation. We did pressure gradient across the ostium of the right common iliac artery, which was 5 to 7 mmHg. Selective angiogram of the left common femoral artery was performed and then Mynx closure was performed. The patient tolerated the procedure well and did not have any complications. IMPRESSION/CONCLUSION: 1. Totally occluded CRYSTALIZER, SFA, popliteal artery with reconstitution in the right tibioperoneal trunk. The occlusion is within the stents placed previously. 2. Revascularization of the right lower extremity till the right tibioperoneal trunk was performed with balloon angioplasty. 3. Drug-coated balloon angioplasty was performed to the right distal CRYSTALIZER as well as proximal SFA. Excellent results. 4. The patient will be observed overnight, will be started on aspirin, Plavix. 5. Compliance to aspirin, Plavix was strongly recommended. Hopefully the patient will be discharged tomorrow. Job ID: [id number] DocumentID: [id number] Dictated Date: 05/03/2017 12:54:20 Internet Marketing Director Date: 05/04/2017 04:12:49 Dictated By: ANJELICA CARPENTER MD [facility]
[2017-05-04 05:07] LABS: MEAN PLATELET VOLUME 10.9 FL (7.4-10.4); RED BLOOD COUNT 4.06 10^6/uL (4.35-5.85); RED CELL DISTRIBUTION WIDTH 15.8 % (10.0-14.5); WHITE BLOOD COUNT 6.9 10^3/uL (4.3-11.0)
[2017-05-04 05:32] LABS: ANION GAP 9 MMOL/L (5-14); BLOOD UREA NITROGEN 13 MG/DL (7-18); BUN/CREATININE RATIO 21; CALCIUM 8.1 MG/DL (8.5-10.1); CARBON DIOXIDE 21 MMOL/L (21-32); CHLORIDE 111 MMOL/L (98-107); CREATININE SERUM 0.61 MG/DL (0.60-1.30); GFR ESTIMATED > 60; GLUCOSE 95 MG/DL (70-105); POTASSIUM 4.2 MMOL/L (3.6-5.0); SODIUM 141 MMOL/L (135-145)
[2017-05-04 08:00] VITALS: BP 110/60
[2017-05-04] MEDS ORDERED: CLOPIDOGREL 75 MG (PLAVIX) TABLET PO SCH (09:00)
[2017-05-04] MEDS ORDERED: ASPIRIN E.C. 81 MG (ECOTRIN) TAB PO SCH (09:00)
[2017-05-04] MEDS: NS IV 1000 ML 1,000 ML IV SCH (09:05)
[2017-05-04 12:00] VITALS: BP 112/64
--- NOTE | 2017-05-04 22:03 | Cardiology Progress Note ---
Cardiology SOAP Progress Note Subjective: late entry patient seen at 7.30am no complaints Objective: I&O/Vital Signs Vital Sign - Last 12Hours 05/04/17 12:00 Temp 98.6 Pulse 55 Resp 20 B/P (MAP) 112/64 Pulse Ox 96 O2 Delivery Room Air Weight (Pounds): 115 Weight (Ounces): 0.0 Weight (Calculated Kilograms): 52.622620 Constitutional: No appears stated age, No AAO x 3, No apparent distress, No PERRL, No well-developed, No well-nourished, No other Respiratory: No accessory muscle use, No respiratory distress, No chest tender , No chest expansion is symmetric, No chest is bilaterally symmetric, No lungs clear to percussion, No lungs clear to auscultation, No crackles, No rhonchi, No rales, No stridor, No wheezing, No pleural rub, No other Cardiovascular: No regular rate-rhythm, No irregularly irregular, No extra beats, No parasternal heave is noted, No JVD, No edema, No bradycardia, No tachycardia, No point of maximal impulse, No cardiac thrills are palpable, No S1 and S2, No gallop/S3, No gallop/S4, No diastolic murmur, No systolic murmur, No friction rub, No click, No other Gastrointestional: No tender, No soft, No round, No distended, No pulsatile mass, No organomegaly, No guarding, No rebound, No tenderness, No hernia, No mass, No audible bowel sounds, No abnormal bowel sounds, No abdominal bruits, No spleenomegaly, No other Results/Procedures: Labs Laboratory Tests 05/04/17 04:25: White Blood Count 6.9, Red Blood Count 4.06L, Hemoglobin 11.8, Hematocrit 37, Mean Corpuscular Volume 91, Mean Corpuscular Hemoglobin 29, Mean Corpuscular Hemoglobin Concent 32, Red Cell Distribution Width 15.8H, Platelet Count 154, Mean Platelet Volume 10.9H, Sodium Level 141, Potassium Level 4.2, Chloride Level 111H, Carbon Dioxide Level 21, Anion Gap 9, Blood Urea Nitrogen 13, Creatinine 0.61, Estimat Glomerular Filtration Rate > 60, BUN/Creatinine Ratio 21, Glucose Level 95, Calcium Level 8.1L Microbiology 05/03/17 MRSA Screen - Final, Complete MRSA not isolated A/P: Assessment/Dx: Right lower extremity - critical limb ischemia Plan: RLE-CLI s/p SCRAP DEALER/DCB to Right SOLUTIONS EXECUTIVE CLOUD SALES/SFA/Pop/TP trunk with excellent blood flow to below the knee. Discussed at length about compliance to aspirin and plavix. restart lipitor. follow up with Dr Morejon in one week. follow up with myself in two to three weeks. Thank you for your consultation. Please call me if you have any questions. Esperanza Carpenter MD, FACP, FACC, FSCAI, FHRS, CCDS Interventional Cardiology Cardiac Electrophysiology Vascular Medicine and Endovascular Interventions Jesus CARPENTER MD May 04, 2017 22:03
== END 2017-05-04 13:05 | disposition home or self-care (01) ==
LOC: CATH 07:21 → ICU 12:00 → CATH 05-04 13:05
PROVIDERS: ATTEND Internal Medicine Interventional Cardiology
DX: I70.211 Atherosclerosis of native arteries of extremities with intermittent claudication, right leg (principal); T82.856A Stenosis of peripheral vascular stent, initial encounter; I70.92 Chronic total occlusion of artery of the extremities; L97.919 Non-pressure chronic ulcer of unspecified part of right lower leg with unspecified severity; Z79.899 Other long term (current) drug therapy; Z87.891 Personal history of nicotine dependence
CPT/HCPCS: 36247; 36415; 37224; 37228; 75630; 75774; 80048; 80053; 85027; 85347; 85610; 85730; 87081; 93005

== ENCOUNTER → 2019-05-26 | Outpatient (CLI) | payer MEDICARE ==
[~2019-05-26] MED LIST changes: +ACHD5005 PO; +ATOR40TA PO; +NATTOKINASE PO; +SERRAPEPTASE PO; +TURMERIC PO
--- NOTE | 2019-05-26 16:31 | Diagnostic Imaging Report ---
CT CHEST SCREENING WO TECHNIQUE: Low-dose unenhanced CT of the chest was performed according to the screening protocol. Coronal MIP and sagittal MPR reformats are created. The acquisition parameters were selected to be within the ACR guidelines for low-dose screening CT chest. INDICATION: 79-year-old female with [id number] history of smoking. COMPARISON: CT chest from 01/08/2017. FINDINGS: Pulmonary findings: No endoluminal nodule within the trachea. Severe centrilobular emphysema is present. No pulmonary mass or consolidation. Calcified pulmonary nodules are compatible with old granulomatous infection. No indeterminate pulmonary nodule. Extrapulmonary findings: Thyroid is normal. No supraclavicular or axillary lymphadenopathy. No mediastinal, discrete hilar, or juxtaphrenic lymphadenopathy. Heart is normal in size without pericardial effusion. Aneurysmal dilatation of the descending aorta appears to have increased since prior CT, now measuring approximately 3.8 cm at the level of the aortic annulus, (previously 3.4 cm at the same level on prior exam). Calcifications of the spleen are unchanged. No worrisome focal osseous lesions. IMPRESSION: 1. Baseline screening CT is negative for features of clinically active lung cancer. 2. Aneurysmal dilatation of the descending aorta appears to have increased since 01/08/2017 CT chest. Lung-RADS category: 1 - Negative Modifier: S - Aortic aneurysm. RECOMMENDATIONS: 1. Continued annual screening with low-dose CT in 12 months. 2. Consider CTA chest to further evaluate the thoracic aneurysm. Dictated by: Dictated on workstation # [id number]
== END ==
LOC: RAD 14:30
PROVIDERS: ATTEND Nurse Practitioner Family
DX: Z12.2 Encounter for screening for malignant neoplasm of respiratory organs (principal); I71.9 Aortic aneurysm of unspecified site, without rupture; F17.210 Nicotine dependence, cigarettes, uncomplicated

== ENCOUNTER → 2022-09-29 | Outpatient (CLI) | payer MEDICARE ==
[~2022-09-29] MED LIST changes: +ASPI-1238 PO; -ASPI-983 PO; -LISI10TA2 PO; +LISI10TA25 PO; -TRAM50TA2 PO; +TRM50T PO
== END ==
LOC: CARD 12:30
PROVIDERS: ATTEND Nurse Practitioner Family
DX: I49.8 Other specified cardiac arrhythmias (principal)
CPT/HCPCS: 93225; 93226

== ENCOUNTER → 2022-11-30 | Outpatient (CLI) | payer MEDICARE, OTHER | LOC: CARD 13:02 | PROVIDERS: ATTEND Family Medicine | DX: I51.7 Cardiomegaly (principal); I34.0 Nonrheumatic mitral (valve) insufficiency; I35.1 Nonrheumatic aortic (valve) insufficiency | CPT/HCPCS: 93306 ==

== ENCOUNTER → 2022-12-13 | Outpatient (CLI) | payer MEDICARE ==
[~2022-12-13] MED LIST changes: +CATHETER FLUSH 10 ML SYR IVP PRN; +REGADENOSON 0.4 MG/5 ML SYR (LEXISCAN) IV ONE
[2022-12-13 13:13] VITALS: BP 132/61
--- NOTE | 2022-12-13 15:00 | Cardiology Stress Test Report ---
Stress Test Report Date of Procedure/Referring: Date of Procedure: Dec 13, 2022 PCP Farrah Santana DO Admitting Physician Admitting Physician: Attending Physician: Jeanie Jha Indications: HTN Baseline Heart Rate: 61 Baseline Blood Pressure: Blood Pressure Systolic: 132 Blood Pressure Diastolic: 61 Baseline Vitals Vital Signs Date Time Temp Pulse Resp B/P (MAP) Pulse Ox O2 Delivery O2 Flow Rate FiO2 12/13/22 13:13 61 132/61 (84) Baseline EKG: Baseline EKG: NSR Summary After explaining the procedure to the patient, she signed a consent and then brought to the stress nuclear laboratory. Patient received 0.4 mg Lexiscan for stress test, ECG, heart rate and blood pressure were monitored continuously. Resting and stress dose of radio tracer were injected, imaging was acquired and reviewed in short axis, horizontal long axis and vertical long axis views. TID: 1.11 SSS: 7 SDS: 2 EF: 68 Patient tolerated Lexiscan well Extracardiac attenuation with gastric attenuation with mild decrease uptake with mild reversibility at the inferoapical segment. Normal left ventricular size, ejection fraction 68% Copy Copies To 1: [facility]ANÍBAL PRIETO MD Dec 13, 2022 15:00
== END ==
LOC: CARD 11:58
PROVIDERS: ATTEND Physician Assistant
DX: I10 Essential (primary) hypertension (principal); I25.10 Atherosclerotic heart disease of native coronary artery without angina pectoris
CPT/HCPCS: 78452; 93017; A9502